=== PATIENT | male | born 1960 | race Caucasian/White ===

== ENCOUNTER 2016-12-21 08:27 | Emergency (ER) | payer MEDICAID ==
--- NOTE | 2016-12-21 09:43 | EDM.PDOC ---
ED HPI GENERAL MEDICAL PROBLEM - General Chief Complaint: Back Pain or Injury Stated Complaint: RIGHT LOWER FLANK/ABDOMINAL PAIN Time Seen by Provider: 12/21/16 09:39 Source of Information: Reports: Patient History Limitations: Reports: No Limitations - History of Present Illness INITIAL COMMENTS - FREE TEXT/NARRATIVE: pt arrived with acute onset of pain in the rt low cva area. He was having such severe pain that he felt like he was going to pass out. Onset: Today Duration: Hour(s):, Getting Worse Location: Reports: Back, Other ( rt cva area. ) Worsens with: Reports: Movement Associated Symptoms: Reports: No Other Symptoms, Other ( when he turns to the left side the pain gets alot worse. ) Right Flank Pain Score (Numeric/FACES): 9 - Related Data Allergies Allergy/AdvReac Type Severity Reaction Status Date / Time No Known Allergies Allergy Verified 12/21/16 09:20 Home Meds: Home Meds Aspirin 1 tab PO DAILY 12/21/16 [History] EPINEPHrine [Epinephrine] 1 dose INJECT ASDIRECTED 12/21/16 [History] Past Medical History HEENT History: Reports: Impaired Vision Cardiovascular History: Reports: Afib - Past Surgical History HEENT Surgical History: Reports: Tonsillectomy Musculoskeletal Surgical History: Reports: Arthroscopic Knee Social & Family History - Tobacco Use Smoking Status *Q: Never Smoker - Alcohol Use Days Per Week of Alcohol Use: 4 Number of Drinks Per Day: 2 Total Drinks Per Week: 8 - Recreational Drug Use Recreational Drug Use: No ED ROS GENERAL - Review of Systems Review Of Systems: See Below Constitutional: Reports: No Symptoms HEENT: Reports: No Symptoms Respiratory: Reports: No Symptoms Cardiovascular: Reports: No Symptoms Endocrine: Reports: No Symptoms GI/Abdominal: Reports: Other ( pain radiates to the rt groin. ) : Reports: No Symptoms Musculoskeletal: Reports: Other ( acute pain in the rt lower cva area. ) ED EXAM,LOWER BACK PAIN/INJURY - Physical Exam Exam: See Below Text/Narrative:: pt arrived with acute rt cva pain. Exam Limited By: No Limitations General Appearance: Alert, Anxious, Moderate Distress Ears: Normal TMs Nose: Normal Inspection Throat/Mouth: Normal Inspection Head: Atraumatic Neck: Normal Inspection Respiratory/Chest: No Respiratory Distress Cardiovascular: Regular Rate, Rhythm GI/Abdominal: Other (pt does not have abdomanal tenderness. ) (Male) Exam: Deferred Rectal (Males) Exam: Deferred Back Exam: CVA Tenderness (R) Extremities: Normal Inspection Neurological: Alert Psychiatric: Anxious Course - Vital Signs Last Recorded V/S: Last Vital Signs Temp 36.3 C 12/21/16 09:18 Pulse 45 L 12/21/16 11:27 Resp 18 12/21/16 11:27 BP 128/83 12/21/16 11:27 Pulse Ox 98 12/21/16 11:27 - Orders/Labs/Meds Labs: Laboratory Tests 12/21/16 12/21/16 12/21/16 Range/Units 09:21 09:35 09:35 WBC 4.6 (4.5-11.0) K/uL RBC 5.07 (4.30-5.90) M/uL Hgb 16.1 H (12.0-15.0) g/dL Hct 46.5 (40.0-54.0) % MCV 92 (80-98) fL MCH 32 H (27-31) pg MCHC 35 (32-36) % Plt Count 156 (150-400) K/uL Neut % (Auto) 74 H (36-66) % Lymph % (Auto) 17 L (24-44) % [place] % (Auto) 7 H (2-6) % Eos % (Auto) 2 (2-4) % Baso % (Auto) 0 (0-1) % Sodium 140 (140-148) mmol/L Potassium 4.3 (3.6-5.2) mmol/L Chloride 106 (100-108) mmol/L Carbon Dioxide 27 (21-32) mmol/L Anion Gap 7.2 (5.0-14.0) mmol/L BUN 20 H (7-18) mg/dL Creatinine 1.2 (0.8-1.3) mg/dL Est Cr Clr Drug Dosing 78.97 mL/min Estimated GFR (MDRD) > 60 (>60) Glucose 107 H (74-106) mg/dL Calcium 8.8 (8.5-10.1) mg/dL Total Bilirubin 1.5 H (0.2-1.0) mg/dL AST 22 (15-37) U/L ALT 34 (12-78) U/L Alkaline Phosphatase 63 (46-116) U/L Total Protein 7.6 (6.4-8.2) g/dL Albumin 3.9 (3.4-5.0) g/dL Globulin 3.7 H (2.3-3.5) g/dL Albumin/Globulin Ratio 1.1 L (1.2-2.2) Urine Color Yellow Urine Appearance Slightly cloudy Urine pH 6.0 (4.5-8.0) Ur Specific [place] 1.015 (1.008-1.030) Urine Protein Negative (NEGATIVE) mg/dL Urine Glucose (UA) Normal (NEGATIVE) mg/dL Urine Ketones Negative (NEGATIVE) mg/dL Urine Occult Blood Negative (NEGATIVE) Urine Nitrite Negative (NEGAITVE) Urine Bilirubin Negative (NEGATIVE) Urine Urobilinogen Normal (NORMAL) mg/dL Ur Leukocyte Esterase Negative (NEGATIVE) Urine RBC Not seen (0-5) Urine WBC Not seen (0-5) Ur Epithelial Cells Rare Amorphous Sediment Not seen Urine Bacteria Not seen Urine Mucus Many Meds: Medications Discontinued Medications Generic Name Dose Route Start Last Admin Trade Name Dash PRN Reason Stop Dose Admin Cyclobenzaprine HCl 10 mg 12/21/16 09:58 12/21/16 10:13 Flexeril PO 12/21/16 09:59 10 mg ONETIME ONE Administration Hydromorphone HCl 0.5 mg 12/21/16 11:46 12/21/16 11:52 Dilaudid IVPUSH 12/21/16 11:47 0.5 mg ONETIME ONE Administration Ketorolac Tromethamine 30 mg 12/21/16 09:57 12/21/16 10:13 Toradol IVPUSH 12/21/16 09:58 30 mg ONETIME ONE Administration Lorazepam 0.5 mg 12/21/16 11:50 12/21/16 11:56 Ativan IVPUSH 12/21/16 11:51 Not Given ONETIME ONE - Re-Assessments/Exams Free Text/Narrative Re-Assessment/Exam: 12/21/16 12:12 lumbar spine series did not show acute findings, cat scan of the abdoman was neg. His lab work was normal. Departure - Departure Time of Disposition: 11:59 Disposition: Home, Self-Care 01 Condition: Fair Clinical Impression: Spasm of lumbar paraspinous muscle - Discharge Information Referrals: PCP,None [Primary Care Provider] - Forms: ED Department Discharge Care Plan Goals: avoid constipation, use prunes daily , get gummy fibers and use 1 or 2 dailycool pack to the back area, rest. avoid lifting and pulling, flexeril 10 mg 1/2 tab qam and qnoon, 1 tab hs. percocet 5/325 q6h prn for pain, follow up appt with Izaiah Dunham.
[2016-12-21] MEDS ORDERED: Ketorolac 30 MG/ML SDV IVPUSH ONE (09:57)
[2016-12-21] MEDS ORDERED: Cyclobenzaprine 10 MG Tab PO ONE (09:58)
[2016-12-21 11:28] VITALS: BP 128/83
--- NOTE | 2016-12-21 11:32 | CT ---
CT abdomen and pelvis. Total DLP 1029. Indication: Right-sided pain. Findings: Lung bases are clear liver within normal limits. Gallbladder within normal limits. Adrenal glands are within normal limits. Pancreas within normal limits. Spleen within normal limits. Bilatera l perinephric fat stranding. No hydronephrosis or obstructing stone. Prostatomegaly. Terminal ileum w ithin normal limits. The appendix is visualized. No acute appendicitis. No dilated loops of small bow el. Bladder is unremarkable. Fat filled inguinal canals can indicate hernias. Minimal atherosclerotic change within the aorta. It is nonaneurysmal. Impression: 1. No acute abdominal or pelvic process by CT
[2016-12-21] MEDS ORDERED: HYDROmorphone 0.5 MG/0.5 ML Syringe IVPUSH ONE (11:46)
[2016-12-21] MEDS ORDERED: LORazepam 2 MG/ML MDV IVPUSH ONE (11:50)
--- NOTE | 2016-12-21 11:53 | CR ---
5 lumbar type vertebral bodies vertebral body heights are well-maintained. Disc height loss L5-S1. Fa cet arthropathy greatest L5-S1.
== END 2016-12-21 12:30 | disposition home or self-care (01) ==
LOC: JP.ED 08:27
DX: M62.830 Muscle spasm of back (principal); H54.7 Unspecified visual loss; I48.91 Unspecified atrial fibrillation; Z79.82 Long term (current) use of aspirin; Z98.890 Other specified postprocedural states
CPT/HCPCS: 36415; 72110; 74176; 80053; 81001; 85025; 96374; 96375; 99285; A9270; J1170; J1885

== ENCOUNTER 2017-08-31 07:36 | Day surgery (SDC) | payer MEDICAID ==
[2017-08-31] MEDS ORDERED: Propofol 200 MG/20 ML SDV ONE (07:53)
[2017-08-31] MEDS ORDERED: fentaNYL 100 MCG/2 ML SDV ONE (07:53)
[2017-08-31] MEDS ORDERED: Midazolam 1 MG/ML 2 ML SDV ONE (07:53)
[2017-08-31] MEDS ORDERED: Sodium Chloride 0.9% 1,000 ML IV SCH (09:15)
--- NOTE | 2017-08-31 10:46 | OR ---
DATE OF PROCEDURE: 08/31/2017 PROCEDURE: Colonoscopy. FINDINGS: Normal colonoscopy. RISKS: Risks, benefits, alternatives, and limitations including, but not limited to infection, bleeding, and perforation were explained to the patient and he wished to proceed. PROCEDURE IN DETAIL: The patient was placed in left lateral decubitus position. Digital rectal exam was performed without abnormality. The scope was introduced and advanced atraumatically to the ileocecal valve. The scope was brought back through the ascending, transverse, descending colon, and retroflexed. No evidence of old or new blood. No masses. No polyps. No diverticula. The patient tolerated the procedure well. Adam Kenny MD /[id number]
[2017-08-31 11:18] VITALS: BP 119/74
== END 2017-08-31 11:20 | disposition home or self-care (01) ==
LOC: JP.SDS 07:36
PROVIDERS: ATTEND Surgery
DX: Z12.11 Encounter for screening for malignant neoplasm of colon (principal)
CPT/HCPCS: 45378; J2250; J2704; J3010; J7030

== ENCOUNTER 2019-08-21 15:29 | Emergency (ER) | payer MEDICAID ==
[2019-08-21 16:11] VITALS: BP 117/82; PULSE 114
[2019-08-21] MEDS ORDERED: Sodium Chloride 0.9% 1,000 ML IV SCH (16:15)
--- NOTE | 2019-08-21 16:43 | EDM.PDOC ---
ED HPI GENERAL MEDICAL PROBLEM - General Chief Complaint: Cardiovascular Problem Stated Complaint: A FIB, DIZZY, SHORT OF BREATH Time Seen by Provider: 08/21/19 15:45 Source of Information: Reports: Patient History Limitations: Reports: No Limitations - History of Present Illness INITIAL COMMENTS - FREE TEXT/NARRATIVE: pt arrived with a history of feeling like his heart is irregular. He has had atrial fib three times in the past and he has been cardioverted. He has not had chest pain. He did not do anything different today. He has not been on any new meds. Onset: Other (pt believes it started in the nite. ) Duration: Hour(s): Location: Reports: Chest Associated Symptoms: Reports: Other (pt has increased fatique and mild dizziness. ) - Related Data Allergies Allergy/AdvReac Type Severity Reaction Status Date / Time bee venom protein (honey bee) Allergy Swelling Verified 08/21/19 15:40 Home Meds: Home Meds Aspirin 325 mg PO DAILY 12/21/16 [History] EPINEPHrine [Epinephrine] 1 dose INJECT ASDIRECTED 12/21/16 [History] Ascorbate Calcium/Bioflavonoid [Aspen-C 500 MG] 1 each PO DAILY 08/21/17 [ History] [place]-3/DHA/Epa/Fish Oil [Fish Oil 1,000 mg Softgel] 2,000 mg PO DAILY 08/21/17 [History] Past Medical History HEENT History: Reports: Impaired Vision Cardiovascular History: Reports: Afib Gastrointestinal History: Reports: Colon Polyp Musculoskeletal History: Reports: Arthritis - Infectious Disease History Infectious Disease History: Reports: Chicken Pox - Past Surgical History HEENT Surgical History: Reports: Tonsillectomy Cardiovascular Surgical History: Reports: Other (See Below) Other Cardiovascular Surgeries/Procedures: cardioversion GI Surgical History: Reports: Colonoscopy Musculoskeletal Surgical History: Reports: Arthroscopic Knee Social & Family History - Tobacco Use Smoking Status *Q: Never Smoker Second Hand Smoke Exposure: No - Caffeine Use Caffeine Use: Reports: Soda - Alcohol Use Days Per Week of Alcohol Use: 7 Number of Drinks Per Day: 2 Total Drinks Per Week: 14 - Recreational Drug Use Recreational Drug Use: No ED ROS GENERAL - Review of Systems Review Of Systems: See Below Constitutional: Reports: Fatigue HEENT: Reports: No Symptoms Respiratory: Reports: Shortness of Breath, Other (pt was working in the garden and he did get more winded today. ) Cardiovascular: Reports: No Symptoms Endocrine: Reports: No Symptoms GI/Abdominal: Reports: No Symptoms : Reports: No Symptoms Musculoskeletal: Reports: No Symptoms Skin: Reports: No Symptoms Neurological: Reports: No Symptoms ED EXAM, GENERAL - Physical Exam Exam: See Below Free Text/Narrative:: pt arrived feeling like his heart was out of rhythm. He has had atrial fib in the past x2. He did not have chest pain. He was sob when he was working today. He is quite sure he got up with the atrial fib today. Exam Limited By: No Limitations General Appearance: Alert, No Apparent Distress, Anxious, Other (pupils equal and reactive. ) Ears: Normal TMs Nose: Normal Inspection Throat/Mouth: Normal Inspection Head: Atraumatic Neck: Normal Inspection Respiratory/Chest: No Respiratory Distress, Other ( chest was clear) Cardiovascular: Irregularly Irregular, Other ( rate at the onset of the visit was 125. ) GI/Abdominal: Soft, Non-Tender (Male) Exam: Deferred Rectal (Males) Exam: Deferred Back Exam: Normal Inspection Extremities: Normal Inspection Neurological: Alert, Oriented, Normal Cognition Psychiatric: Normal Affect Course - Vital Signs Last Recorded V/S: Last Vital Signs Temp 35.5 C L 08/21/19 15:43 Pulse 114 H 08/21/19 16:07 Resp 13 08/21/19 16:07 BP 117/82 08/21/19 16:07 Pulse Ox 98 08/21/19 16:07 - Orders/Labs/Meds Orders: Active Orders 24 hr Category Date Time Status EKG Documentation Completion [RC] ASDIRECTED Care 08/21/19 15:35 Active EKG Documentation Completion [RC] ASDIRECTED Care 08/21/19 17:30 Active Sodium Chloride 0.9% [Normal Saline] 1,000 ml Med 08/21/19 16:15 Active IV ASDIRECTED EKG 12 Lead [EK] Routine Ther 08/21/19 15:35 Ordered EKG 12 Lead [EK] Routine Ther 08/21/19 17:29 Ordered Medication Orders Sodium Chloride (Normal Saline) 1,000 mls @ 250 mls/hr IV ASDIRECTED MARIANNA Last Admin: 08/21/19 16:18 Dose: 250 mls/hr Labs: Laboratory Tests 08/21/19 08/21/19 08/21/19 Range/Units 15:40 15:40 15:55 WBC 7.2 (4.5-11.0) K/uL RBC 5.38 (4.30-5.90) M/uL Hgb 16.8 H (12.0-15.0) g/dL Hct 49.3 (40.0-54.0) % MCV 92 (80-98) fL MCH 31 (27-31) pg MCHC 34 (32-36) % Plt Count 201 (150-400) K/uL Neut % (Auto) 67 H (36-66) % Lymph % (Auto) 19 L (24-44) % [place] % (Auto) 8 H (2-6) % Eos % (Auto) 6 H (2-4) % Baso % (Auto) 0 (0-1) % Sodium 137 L (140-148) mmol/L Potassium 4.2 (3.6-5.2) mmol/L Chloride 104 (100-108) mmol/L Carbon Dioxide 24 (21-32) mmol/L Anion Gap 13.2 (5.0-14.0) mmol/L BUN 22 H (7-18) mg/dL Creatinine 1.5 H (0.8-1.3) mg/dL Est Cr Clr Drug Dosing 59.93 mL/min Estimated GFR (MDRD) 48 L (>60) Glucose 124 H (74-106) mg/dL Calcium 8.9 (8.5-10.1) mg/dL Total Bilirubin 1.2 H (0.2-1.0) mg/dL AST 19 (15-37) U/L ALT 35 (12-78) U/L Alkaline Phosphatase 76 (46-116) U/L Troponin I < 0.017 (0.000-0.056) ng/mL Total Protein 7.3 (6.4-8.2) g/dL Albumin 4.0 (3.4-5.0) g/dL Globulin 3.3 (2.3-3.5) g/dL Albumin/Globulin Ratio 1.2 (1.2-2.2) TSH, Ultra Sensitive 2.156 (0.358-3.740) uIU/mL Urine Color Yellow (YELLOW) Urine Appearance Clear (CLEAR) Urine pH 5.5 (5.0-8.0) Ur Specific [place] >= 1.030 (1.008-1.030) Urine Protein Negative (NEGATIVE) mg/dL Urine Glucose (UA) Negative (NEGATIVE) mg/dL Urine Ketones Trace H (NEGATIVE) mg/dL Urine Occult Blood Negative (NEGATIVE) Urine Nitrite Negative (NEGATIVE) Urine Bilirubin Negative (NEGATIVE) Urine Urobilinogen 0.2 (0.2-1.0) EU/dL Ur Leukocyte Esterase Negative (NEGATIVE) Urine RBC 0-5 (0-5) Urine WBC 0-5 (0-5) Ur Epithelial Cells Few Amorphous Sediment Not seen Urine Bacteria Few Urine Mucus Few Meds: Medications Generic Name Dose Route Start Last Admin Trade Name Freq PRN Reason Stop Dose Admin Sodium Chloride 1,000 mls @ 250 mls/hr 08/21/19 16:15 08/21/19 16:18 Normal Saline IV 250 mls/hr ASDIRECTED MARIANNA Administration Discontinued Medications Generic Name Dose Route Start Last Admin Trade Name Freq PRN Reason Stop Dose Admin Propofol Confirm 08/21/19 17:02 Diprivan 20 Ml Administered 08/21/19 17:03 Dose 200 mg .ROUTE .STK-MED ONE - Re-Assessments/Exams Free Text/Narrative Re-Assessment/Exam: 08/21/19 16:44 pt was found to have normal labs except a creatmine of 1.5. He showed atrial fib on the ekg. Dr Hicks was consulted and a cardioversion was done. He has a normal sinus rhythm with a heart rate of 49. 08/21/19 17:37 Departure - Departure Time of Disposition: 17:43 Disposition: Home, Self-Care 01 Condition: Fair Clinical Impression: Atrial fibrillation, Encounter for cardioversion procedure, Elevated serum creatinine Referrals: PCP,None [Primary Care Provider] - Forms: ED Department Discharge Care Plan Goals: push fluids, appt with cardiology in [place] in the next 2 weeks if possible, rtc if problems. Sepsis Event Note - Evaluation Sepsis Screening Result: No Definite Risk - Focused Exam Vital Signs: Vital Signs Temp Pulse Resp BP Pulse Ox 08/21/19 16:07 114 H 13 117/82 98 08/21/19 15:52 16 L 13 126/86 98 08/21/19 15:43 35.5 C L 108 H 17 117/84 98 08/21/19 15:42 35.5 C L 108 H 17 117/84 98 Date Exam was Performed: 08/21/19 Time Exam was Performed: 17:43 - My Orders Last 24 Hours: My Active Orders 08/21/19 15:35 EKG Documentation Completion [RC] ASDIRECTED EKG 12 Lead [EK] Routine 08/21/19 16:15 Sodium Chloride 0.9% [Normal Saline] 1,000 ml IV ASDIRECTED 08/21/19 17:29 EKG 12 Lead [EK] Routine 08/21/19 17:30 EKG Documentation Completion [RC] ASDIRECTED - Assessment/Plan Last 24 Hours: My Active Orders 08/21/19 15:35 EKG Documentation Completion [RC] ASDIRECTED EKG 12 Lead [EK] Routine 08/21/19 16:15 Sodium Chloride 0.9% [Normal Saline] 1,000 ml IV ASDIRECTED 08/21/19 17:29 EKG 12 Lead [EK] Routine 08/21/19 17:30 EKG Documentation Completion [RC] ASDIRECTED
--- NOTE | 2019-08-21 16:48 | PCM.CONS ---
H&P History of Present Illness - General Date of Service: 08/21/19 Admit Problem/Dx: Mr. Gilman is a 58-year-old gentleman who I been asked to see in the emergency department by Dr. Castro for recommendations concerning management of atrial fibrillation with rapid ventricular response. He has a known history of previous episodic atrial fibrillation. First episode occurred approximately 8 years ago, he was cardioverted to sinus rhythm at that time. Second episode occurred approximately 7 months ago and again he underwent electrical cardioversion in the emergency department. Following that episode he was seen by cardiology and had an echocardiogram, they recommended no further intervention other than 1 whole aspirin per day. Last night after getting out of the chair he noted that he was somewhat lightheaded but did not note that his heart rate was rapid or irregular. This morning he felt more weak and tired , his noted that his heart rhythm was irregular and rapid. He was active through the day and perhaps felt slightly more short of breath than usual. He decided to come into the emergency department for further evaluation and was found to be in atrial fibrillation with rapid ventricular response, rates in the range of 100-120. He denies any symptoms of chest pain or pressure, shortness of breath other than mild exertional dyspnea. He has no significant lightheadedness and is fairly sure that he is gone into the atrial fibrillation within the last 24 hours. He has no known history of other cardiac disease or interventions. Source of Information: Patient, Provider, RN Notes Reviewed History Limitations: Reports: No Limitations - Related Data Allergies/Adverse Reactions: Allergies Allergy/AdvReac Type Severity Reaction Status Date / Time bee venom protein (honey bee) Allergy Swelling Verified 08/21/19 15:40 Home Medications: Home Meds Aspirin 325 mg PO DAILY 12/21/16 [History] EPINEPHrine [Epinephrine] 1 dose INJECT ASDIRECTED 12/21/16 [History] Ascorbate Calcium/Bioflavonoid [Aspen-C 500 MG] 1 each PO DAILY 08/21/17 [ History] [place]-3/DHA/Epa/Fish Oil [Fish Oil 1,000 mg Softgel] 2,000 mg PO DAILY 08/21/17 [History] Past Medical History HEENT History: Reports: Impaired Vision Cardiovascular History: Reports: Afib Gastrointestinal History: Reports: Colon Polyp Musculoskeletal History: Reports: Arthritis - Infectious Disease History Infectious Disease History: Reports: Chicken Pox - Past Surgical History HEENT Surgical History: Reports: Tonsillectomy Cardiovascular Surgical History: Reports: Other (See Below) Other Cardiovascular Surgeries/Procedures: cardioversion GI Surgical History: Reports: Colonoscopy Musculoskeletal Surgical History: Reports: Arthroscopic Knee Social & Family History - Tobacco Use Smoking Status *Q: Never Smoker Second Hand Smoke Exposure: No - Caffeine Use Caffeine Use: Reports: Soda - Alcohol Use Days Per Week of Alcohol Use: 7 Number of Drinks Per Day: 2 Total Drinks Per Week: 14 - Recreational Drug Use Recreational Drug Use: No H&P Review of Systems - Review of Systems: Review Of Systems: See Below General: Reports: Weakness, Fatigue. Denies: Fever, Chills Pulmonary: Reports: No Symptoms Cardiovascular: Reports: Palpitations, Dyspnea on Exertion. Denies: Chest Pain , Orthopnea, PND, Edema, Lightheadedness Gastrointestinal: Reports: No Symptoms Musculoskeletal: Reports: No Symptoms Exam - Exam Exam: See Below - Vital Signs Vital Signs: Last Vital Signs Temp 95.9 F L 08/21/19 15:43 Pulse 114 H 08/21/19 16:07 Resp 13 08/21/19 16:07 BP 117/82 08/21/19 16:07 Pulse Ox 98 08/21/19 16:07 Weight: 232 lb - Exam General: Alert, Oriented, Cooperative, Mild Distress Neck: Supple, Trachea Midline, +2 Carotid Pulse wo Bruit Lungs: Clear to Auscultation, Normal Respiratory Effort Cardiovascular: Normal S1, Normal S2, Irregular Rhythm, Tachycardia. No: Systolic Murmur, Diastolic Murmur GI/Abdominal Exam: Soft, Non-Tender, No Organomegaly, No Distention Extremities: Non-Tender, No Pedal Edema - Patient Data Lab Results Last 24 hrs: Laboratory Results - last 24 hr 08/21/19 08/21/19 08/21/19 Range/Units 15:40 15:40 15:55 WBC 7.2 (4.5-11.0) K/uL RBC 5.38 (4.30-5.90) M/uL Hgb 16.8 H (12.0-15.0) g/dL Hct 49.3 (40.0-54.0) % MCV 92 (80-98) fL MCH 31 (27-31) pg MCHC 34 (32-36) % Plt Count 201 (150-400) K/uL Neut % (Auto) 67 H (36-66) % Lymph % (Auto) 19 L (24-44) % [place] % (Auto) 8 H (2-6) % Eos % (Auto) 6 H (2-4) % Baso % (Auto) 0 (0-1) % Sodium 137 L (140-148) mmol/L Potassium 4.2 (3.6-5.2) mmol/L Chloride 104 (100-108) mmol/L Carbon Dioxide 24 (21-32) mmol/L Anion Gap 13.2 (5.0-14.0) mmol/L BUN 22 H (7-18) mg/dL Creatinine 1.5 H (0.8-1.3) mg/dL Est Cr Clr Drug Dosing 59.93 mL/min Estimated GFR (MDRD) 48 L (>60) Glucose 124 H (74-106) mg/dL Calcium 8.9 (8.5-10.1) mg/dL Total Bilirubin 1.2 H (0.2-1.0) mg/dL AST 19 (15-37) U/L ALT 35 (12-78) U/L Alkaline Phosphatase 76 (46-116) U/L Troponin I < 0.017 (0.000-0.056) ng/mL Total Protein 7.3 (6.4-8.2) g/dL Albumin 4.0 (3.4-5.0) g/dL Globulin 3.3 (2.3-3.5) g/dL Albumin/Globulin Ratio 1.2 (1.2-2.2) TSH, Ultra Sensitive 2.156 (0.358-3.740) uIU/mL Urine Color Yellow (YELLOW) Urine Appearance Clear (CLEAR) Urine pH 5.5 (5.0-8.0) Ur Specific [place] >= 1.030 (1.008-1.030) Urine Protein Negative (NEGATIVE) mg/dL Urine Glucose (UA) Negative (NEGATIVE) mg/dL Urine Ketones Trace H (NEGATIVE) mg/dL Urine Occult Blood Negative (NEGATIVE) Urine Nitrite Negative (NEGATIVE) Urine Bilirubin Negative (NEGATIVE) Urine Urobilinogen 0.2 (0.2-1.0) EU/dL Ur Leukocyte Esterase Negative (NEGATIVE) Urine RBC 0-5 (0-5) Urine WBC 0-5 (0-5) Ur Epithelial Cells Few Amorphous Sediment Not seen Urine Bacteria Few Urine Mucus Few Result Diagrams: 08/21/19 15:40 08/21/19 15:40 Sepsis Event Note - Evaluation Sepsis Screening Result: No Definite Risk - Focused Exam Vital Signs: Vital Signs Temp Pulse Resp BP Pulse Ox 08/21/19 16:07 114 H 13 117/82 98 08/21/19 15:52 16 L 13 126/86 98 08/21/19 15:43 95.9 F L 108 H 17 117/84 98 08/21/19 15:42 95.9 F L 108 H 17 117/84 98 Date Exam was Performed: 08/21/19 Time Exam was Performed: 16:42 *Q Meaningful Use (ADM) - VTE *Q VTE Anticoagulation Contraindications: Med/TX Not Indicated/Need Consult PN Assessment/Plan Procedures: Procedures COMPLETE CBC W/AUTO DIFF WBC (12/21/16) COMPREHEN METABOLIC PANEL (12/21/16) CT ABD & PELVIS W/O CONTRAST (12/21/16) CT LOWER EXTREMITY W/O DYE (06/25/19) DIAGNOSTIC COLONOSCOPY (08/31/17) EMERGENCY DEPT VISIT (12/21/16) MRI JNT OF LWR EXTRE W/O DYE (06/23/19) MRI LUMBAR SPINE W/O DYE (06/23/19) POLYSOM 6/> YRS 4/> LUIS (05/05/19) PT EVAL LOW COMPLEX 20 MIN (11/02/16) ROUTINE VENIPUNCTURE (12/21/16) THER/PROPH/DIAG INJ IV PUSH (12/21/16) THERAPEUTIC ACTIVITIES (11/02/16) THERAPEUTIC EXERCISES (11/02/16) TX/PRO/DX INJ NEW DRUG ADDON (12/21/16) URINALYSIS AUTO W/SCOPE (12/21/16) X-RAY EXAM L-2 SPINE 4/>VWS (12/21/16) Problem List Initiated/Reviewed/Updated: Yes Plan: ASSESSMENT AND RECOMMENDATIONS ATRIAL FIBRILLATION WITH RAPID VENTRICULAR RESPONSE-I discussed options for management with him including observation versus electrical cardioversion, with the risks and goals of each. He prefers to proceed with electrical cardioversion. -Electrical cardioversion -IV sedation per anesthesia -Outpatient follow-up with primary care and cardiology [place]ing [place] [facility] [place] Consult Requested: 08/21/19 Reason for Consult: Atrial fibrillation with rapid ventricular response Patient History Reviewed: Yes Admission H&P Reviewed: No (NA) Notified Requestor: Yes
--- NOTE | 2019-08-21 16:51 | PCM.OPNOTE ---
- General Post-Op/Procedure Note Date of Surgery/Procedure: 08/21/19 Operative Procedure(s): Electrical cardioversion Pre Op Diagnosis: Atrial fibrillation with rapid ventricular response Post-Op Diagnosis: Same Anesthesia Technique: Moderate Sedation Primary Surgeon: Tim Hicks Anesthesia Provider: Dariusz Alonzo Complications: None Condition: Good Free Text/Narrative:: Mr. Gilman is a 58-year-old gentleman with recurrent atrial fibrillation and rapid ventricular response. 2 previous episodes, both times converted to sinus with rhythm with electrical cardioversion. We discussed options for management including electrical cardioversion versus observation and rate control, with risks and benefits of each. He would like to proceed with electrical cardioversion at this time. IV sedation provided by Mr. Alonzo from the anesthesia service, after adequate sedation was achieved, he was electrically cardioverted to sinus rhythm using 200 J of energy delivered in a synchronized fashion. Follow-up EKG did document normal sinus rhythm. He will be discharged home after he is recovered from his IV sedation, he is instructed not to drive or use power tools for the next 24 hours. Follow-up appointment should be scheduled with his primary care provider within 1 week, consider outpatient follow-up with cardiology as well.
[2019-08-21] MEDS ORDERED: Propofol 200 MG/20 ML SDV ONE (17:02)
== END 2019-08-21 18:02 | disposition home or self-care (01) ==
LOC: JP.ED 15:29
DX: I48.91 Unspecified atrial fibrillation (principal); R74.8 Abnormal levels of other serum enzymes; M19.90 Unspecified osteoarthritis, unspecified site; Z79.82 Long term (current) use of aspirin; Z91.030 Bee allergy status
CPT/HCPCS: 36415; 80053; 81001; 84443; 84484; 85025; 92960; 93005; 96360; 96361; 99285; J2704; J7030

== ENCOUNTER 2019-12-10 14:57 | Inpatient (IN) | payer MEDICAID ==
[2019-12-10] MEDS ORDERED: Sodium Chloride 0.9% 10 ML Syringe FLUSH PRN ×2 (15:16→17:39)
[2019-12-10] MEDS ORDERED: Diltiazem 25 MG/5 ML SDV IVPUSH ONE (15:17)
--- NOTE | 2019-12-10 15:22 | EDM.PDOC ---
ED HPI GENERAL MEDICAL PROBLEM - General Chief Complaint: Cardiovascular Problem Stated Complaint: IRREGULAR HEARTBEAT/AFIB Time Seen by Provider: 12/10/19 15:16 Source of Information: Reports: Patient, Family, RN Notes Reviewed History Limitations: Reports: No Limitations - History of Present Illness INITIAL COMMENTS - FREE TEXT/NARRATIVE: 59-year-old gentleman presents emergency department today with complaint of palpitations he has known history of paroxysmal atrial fibrillation he has had cardioversion x3 first in 2011 and then twice within the last year he does follow with electrophysiology in [place]. He states this particular event he was doing fine yesterday and then it started today at 10:00 last ate at 11:00 today, denies any shortness of breath or chest pain no nausea vomiting - Related Data Allergies Allergy/AdvReac Type Severity Reaction Status Date / Time bee venom protein (honey bee) Allergy Swelling Verified 08/21/19 15:40 Home Meds: Home Meds Aspirin 325 mg PO DAILY 12/21/16 [History] EPINEPHrine [Epinephrine] 1 dose INJECT ASDIRECTED 12/21/16 [History] Ascorbate Calcium/Bioflavonoid [Aspen-C 500 MG] 1 each PO DAILY 08/21/17 [History] [place]-3/DHA/Epa/Fish Oil [Fish Oil 1,000 mg Softgel] 2,000 mg PO DAILY 08/21/17 [History] Past Medical History HEENT History: Reports: Impaired Vision Cardiovascular History: Reports: Afib (Paroxysmal) Gastrointestinal History: Reports: Colon Polyp Musculoskeletal History: Reports: Arthritis - Infectious Disease History Infectious Disease History: Reports: Chicken Pox - Past Surgical History HEENT Surgical History: Reports: Tonsillectomy Cardiovascular Surgical History: Reports: Other (See Below) Other Cardiovascular Surgeries/Procedures: cardioversion GI Surgical History: Reports: Colonoscopy Musculoskeletal Surgical History: Reports: Arthroscopic Knee Social & Family History - Tobacco Use Smoking Status *Q: Never Smoker - Caffeine Use Caffeine Use: Reports: Tea - Recreational Drug Use Recreational Drug Use: No ED ROS GENERAL - Review of Systems Review Of Systems: See Below Constitutional: Reports: No Symptoms HEENT: Reports: No Symptoms Respiratory: Reports: No Symptoms Cardiovascular: Reports: Palpitations GI/Abdominal: Reports: No Symptoms ED EXAM, GENERAL - Physical Exam Exam: See Below Exam Limited By: No Limitations General Appearance: Alert, WD/WN, No Apparent Distress Neck: Normal Inspection, Supple, Non-Tender, Full Range of Motion Respiratory/Chest: No Respiratory Distress, Lungs Clear, Normal Breath Sounds, No Accessory Muscle Use, Chest Non-Tender Cardiovascular: Irregularly Irregular GI/Abdominal: Soft, Non-Tender ED CARDIOLOGY PROCEDURES - Cardioversion Time of Cardioversion: 16:45 Indication: Atrial Fibrillation with RVR Patient Counseled: Yes Informed Consent Obtained: Yes Preparation: IV Access, Airway Management Equipment, Supplemental Oxygen, Monitor, Reversal Agents Available, Other Pre-Procedure Sedation: Propofol Cardioversion Energy: Other Mode: Biphasic Successful: No Number of Attempts: 2 Patient Condition Post Cardioversion: Unchanged Post Cardioversion EKG Reviewed: No Course - Vital Signs Last Recorded V/S: Last Vital Signs Temp 98.6 F 12/10/19 15:08 Pulse 74 12/10/19 15:32 Resp 17 12/10/19 15:32 BP 100/73 12/10/19 15:32 Pulse Ox 94 L 12/10/19 15:32 - Orders/Labs/Meds Orders: Active Orders 24 hr Category Date Time Status Cardiac Monitoring [RC] .As Directed Care 12/10/19 15:16 Active EKG Documentation Completion [RC] ASDIRECTED Care 12/10/19 15:16 Active Peripheral IV Care [RC] . DIRECTED Care 12/10/19 15:16 Active Diltiazem 100 MG in Normal Saline Adv @ 5 MG/HR(100ml) Med 12/10/19 16:45 Ordered Diltiazem [Cardizem] 100 mg Sodium Chloride 0.9% [Normal Saline] 100 ml IV TITRATE Sodium Chloride 0.9% [Normal Saline] 1,000 ml Med 12/10/19 15:30 Active IV ASDIRECTED Sodium Chloride 0.9% [Saline Flush] Med 12/10/19 15:16 Active 10 ml FLUSH ASDIRECTED PRN Peripheral IV Insertion Adult [OM.PC] Stat Oth 12/10/19 15:16 Ordered EKG 12 Lead [EK] Stat Ther 12/10/19 15:16 Ordered Medication Orders Sodium Chloride (Normal Saline) 1,000 mls @ 125 mls/hr IV ASDIRECTED MARIANNA Last Admin: 12/10/19 15:19 Dose: 125 mls/hr Documented by: [id number] Diltiazem HCl 100 mg/ Sodium (Chloride) 100 mls @ 5 mls/hr IV TITRATE MARIANNA; Protocol Sodium Chloride (Saline Flush) 10 ml FLUSH ASDIRECTED PRN PRN Reason: Keep Vein Open Last Admin: 12/10/19 15:21 Dose: 10 ml Documented by: PRISCILLA Labs: Laboratory Tests 12/10/19 12/10/19 Range/Units 15:10 15:10 WBC 11.4 H (4.5-11.0) K/uL RBC 5.44 (4.30-5.90) M/uL Hgb 16.8 H (12.0-15.0) g/dL Hct 50.1 (40.0-54.0) % MCV 92 (80-98) fL MCH 31 (27-31) pg MCHC 34 (32-36) % Plt Count 198 (150-400) K/uL Neut % (Auto) 80 H (36-66) % Lymph % (Auto) 11 L (24-44) % [place] % (Auto) 8 H (2-6) % Eos % (Auto) 1 L (2-4) % Baso % (Auto) 0 (0-1) % Sodium 140 (140-148) mmol/L Potassium 4.5 (3.6-5.2) mmol/L Chloride 105 (100-108) mmol/L Carbon Dioxide 25 (21-32) mmol/L Anion Gap 9.6 (5.0-14.0) mmol/L BUN 20 H (7-18) mg/dL Creatinine 1.6 H (0.8-1.3) mg/dL Est Cr Clr Drug Dosing 55.49 mL/min Estimated GFR (MDRD) 44 L (>60) Glucose 105 (74-106) mg/dL Calcium 9.3 (8.5-10.1) mg/dL Magnesium 1.9 (1.8-2.4) mg/dL Total Bilirubin 1.5 H (0.2-1.0) mg/dL AST 20 (15-37) U/L ALT 27 (12-78) U/L Alkaline Phosphatase 70 (46-116) U/L Troponin I < 0.017 (0.000-0.056) ng/mL Total Protein 7.6 (6.4-8.2) g/dL Albumin 4.1 (3.4-5.0) g/dL Globulin 3.5 (2.3-3.5) g/dL Albumin/Globulin Ratio 1.2 (1.2-2.2) Meds: Medications Generic Name Dose Route Start Last Admin Trade Name Freq PRN Reason Stop Dose Admin Sodium Chloride 1,000 mls @ 125 mls/hr 12/10/19 15:30 12/10/19 15:19 Normal Saline IV 125 mls/hr ASDIRECTED MARIANNA Administration Diltiazem HCl 100 mg/ Sodium 100 mls @ 5 mls/hr 12/10/19 16:45 Chloride IV TITRATE MARIANNA Protocol 5 MG/HR Sodium Chloride 10 ml 12/10/19 15:16 12/10/19 15:21 Saline Flush FLUSH 10 ml ASDIRECTED PRN Administration Keep Vein Open Discontinued Medications Generic Name Dose Route Start Last Admin Trade Name Freq PRN Reason Stop Dose Admin Diltiazem HCl 25 mg 12/10/19 15:17 12/10/19 15:20 Diltiazem IVPUSH 12/10/19 15:18 25 mg ONETIME ONE Administration Propofol Confirm 12/10/19 16:39 Diprivan 20 Ml Administered 12/10/19 16:40 Dose 200 mg .ROUTE .STK-MED ONE - Re-Assessments/Exams Free Text/Narrative Re-Assessment/Exam: 12/10/19 15:21 Call discussed case with Hayden from anesthesia at 1520 estimated 1 hour arrival time before cardioversion Departure - Departure Time of Disposition: 16:48 Disposition: Admitted As Inpatient 65 Condition: Fair Clinical Impression: Atrial fibrillation Qualifiers: Atrial fibrillation type: persistent (not longstanding) Qualified Code(s): I48.19 - Other persistent atrial fibrillation; I48.1 - Persistent atrial fibrillation Referrals: PCP,None [Primary Care Provider] - Forms: ED Department Discharge Sepsis Event Note (ED) - Evaluation Sepsis Screening Result: No Definite Risk - Focused Exam Vital Signs: Vital Signs Temp Pulse Resp BP Pulse Ox 12/10/19 15:32 74 17 100/73 94 L 12/10/19 15:08 98.6 F 117 H 16 117/82 98 12/10/19 15:07 98.6 F 117 H 16 117/82 98 - My Orders Last 24 Hours: My Active Orders 12/10/19 15:16 Cardiac Monitoring [RC] .As Directed EKG Documentation Completion [RC] ASDIRECTED Peripheral IV Care [RC] . DIRECTED Sodium Chloride 0.9% [Saline Flush] 10 ml FLUSH ASDIRECTED PRN Peripheral IV Insertion Adult [OM.PC] Stat EKG 12 Lead [EK] Stat 12/10/19 15:30 Sodium Chloride 0.9% [Normal Saline] 1,000 ml IV ASDIRECTED 12/10/19 16:45 Diltiazem 100 MG in Normal Saline Adv @ 5 MG/HR(100ml) Diltiazem [Cardizem] 100 mg Sodium Chloride 0.9% [Normal Saline] 100 ml IV TITRATE - Assessment/Plan Last 24 Hours: My Active Orders 12/10/19 15:16 Cardiac Monitoring [RC] .As Directed EKG Documentation Completion [RC] ASDIRECTED Peripheral IV Care [RC] . DIRECTED Sodium Chloride 0.9% [Saline Flush] 10 ml FLUSH ASDIRECTED PRN Peripheral IV Insertion Adult [OM.PC] Stat EKG 12 Lead [EK] Stat 12/10/19 15:30 Sodium Chloride 0.9% [Normal Saline] 1,000 ml IV ASDIRECTED 12/10/19 16:45 Diltiazem 100 MG in Normal Saline Adv @ 5 MG/HR(100ml) Diltiazem [Cardizem] 100 mg Sodium Chloride 0.9% [Normal Saline] 100 ml IV TITRATE Plan: Assessment Acuity = acute Site and laterality = atrial fibrillation with rapid ventricular response Etiology = unknown Manifestations = lightheadedness with near syncope Location of injury = Home Lab values = CBC unremarkable CMP reveals a creatinine elevated 1.6 consistent with chronic renal failure stage G3 B EKG demonstrates atrial fibrillation Plan Cardioversion was unsuccessful at 2 attempts next call discussed case with hospitalist on-call at 1630 he kindly agreed to come and evaluate the patient emergency department for admission thus far has been given a Cardizem bolus prior to cardioversion and now initiated on a Cardizem drip This note was dictated using [employer] voice recognition software please call with any questions on syntax or grammar.
[2019-12-10] MEDS ORDERED: Sodium Chloride 0.9% 1,000 ML IV SCH (15:30)
[2019-12-10] MEDS ORDERED: Propofol 200 MG/20 ML SDV ONE (16:39)
[2019-12-10] MEDS ORDERED: Diltiazem 100 MG in Sodium Chloride 0.9% 100 ML IV SCH ×2 (16:45→17:39)
--- NOTE | 2019-12-10 16:50 | PCM.HP.2 ---
H&P History of Present Illness - General Date of Service: 12/10/19 Admit Problem/Dx: Admission Diagnosis/Problem Admission Diagnosis/Problem Atrial fibrillation with rapid ventricular response Source of Information: Patient, Family, Provider, RN Notes Reviewed History Limitations: Reports: No Limitations - History of Present Illness Initial Comments - Free Text/Narative: Mr. Gilman is a 59-year-old gentleman who was admitted through the emergency department with weakness and lightheadedness secondary to atrial fibrillation with rapid ventricular response. He has a known history of paroxysmal atrial fibrillation with 3 previous episodes, 2 of which have occurred in the past year. He has been followed by Dr. Bhat, EP cardiology from [facility] in [facility]. He was feeling well until approximately 10 AM this morning when he noted onset of rapid heart rate associated with symptoms of lightheadedness when he would stand up or try any type of activity. He presented to the emergency department this afternoon, labs were unremarkable except for a creatinine of 1.6. Telemetry monitoring and EKG showed atrial fibrillation with rapid ventricular response. Electrical cardioversion was attempted in the emergency department and 2 attempts, the first at 200 J and the second at 300 J were both unsuccessful in converting him to sinus rhythm. He has received a bolus dose of IV diltiazem 25 mg and his rate has improved and now is below 100. Calculated [id number] score is 0. - Related Data Allergies/Adverse Reactions: Allergies Allergy/AdvReac Type Severity Reaction Status Date / Time bee venom protein (honey bee) Allergy Swelling Verified 08/21/19 15:40 Home Medications: Home Meds Aspirin 325 mg PO DAILY 12/21/16 [History] EPINEPHrine [Epinephrine] 1 dose INJECT ASDIRECTED 12/21/16 [History] Ascorbate Calcium/Bioflavonoid [Aspen-C 500 MG] 1 each PO DAILY 08/21/17 [History] [place]-3/DHA/Epa/Fish Oil [Fish Oil 1,000 mg Softgel] 2,000 mg PO DAILY 08/21/17 [History] Past Medical History HEENT History: Reports: Impaired Vision Cardiovascular History: Reports: Afib (Paroxysmal) Gastrointestinal History: Reports: Colon Polyp Musculoskeletal History: Reports: Arthritis - Infectious Disease History Infectious Disease History: Reports: Chicken Pox - Past Surgical History HEENT Surgical History: Reports: Tonsillectomy Cardiovascular Surgical History: Reports: Other (See Below) Other Cardiovascular Surgeries/Procedures: cardioversion GI Surgical History: Reports: Colonoscopy Musculoskeletal Surgical History: Reports: Arthroscopic Knee Social & Family History - Tobacco Use Smoking Status *Q: Never Smoker - Caffeine Use Caffeine Use: Reports: Tea - Recreational Drug Use Recreational Drug Use: No H&P Review of Systems - Review of Systems: Review Of Systems: See Below General: Reports: No Symptoms HEENT: Reports: No Symptoms Pulmonary: Reports: No Symptoms Cardiovascular: Reports: Palpitations, Lightheadedness. Denies: Chest Pain, Dyspnea on Exertion, Orthopnea, PND, Edema, Syncope Gastrointestinal: Reports: No Symptoms Genitourinary: Reports: No Symptoms Musculoskeletal: Reports: No Symptoms Skin: Reports: No Symptoms Psychiatric: Reports: No Symptoms Neurological: Reports: No Symptoms Hematologic/Lymphatic: Reports: No Symptoms Immunologic: Reports: No Symptoms Exam - Exam Exam: See Below - Vital Signs Vital Signs: Last Vital Signs Temp 98.6 F 12/10/19 15:08 Pulse 74 12/10/19 15:32 Resp 17 12/10/19 15:32 BP 100/73 12/10/19 15:32 Pulse Ox 94 L 12/10/19 15:32 Weight: 230 lb - Exam General: Alert, Oriented, Cooperative, Mild Distress HEENT: Conjunctiva Clear, Hearing Intact, Mucosa Moist & [place], Normal Nasal Septum, Posterior Pharynx Clear, Pupils Equal Neck: Supple, Trachea Midline, +2 Carotid Pulse wo Bruit Lungs: Clear to Auscultation, Normal Respiratory Effort, Decreased Breath Sounds Cardiovascular: Regular Rate, Normal S1, Normal S2, Irregular Rhythm. No: Systolic Murmur, Diastolic Murmur GI/Abdominal Exam: Soft, Non-Tender, No Organomegaly, No Distention Back Exam: Normal Inspection, Full Range of Motion Extremities: Non-Tender, No Pedal Edema Skin: Warm, Dry, Intact Neurological: Cranial Nerves Intact, Strength Equal Bilateral, Normal Speech, Normal Tone, Sensation Intact. No: Focal Deficit Neuro Extensive - Mental Status: Alert, Oriented x3, Normal Mood/Affect, Normal Cognition, Memory Intact - Patient Data Lab Results Last 24 hrs: Laboratory Results - last 24 hr 12/10/19 12/10/19 Range/Units 15:10 15:10 WBC 11.4 H (4.5-11.0) K/uL RBC 5.44 (4.30-5.90) M/uL Hgb 16.8 H (12.0-15.0) g/dL Hct 50.1 (40.0-54.0) % MCV 92 (80-98) fL MCH 31 (27-31) pg MCHC 34 (32-36) % Plt Count 198 (150-400) K/uL Neut % (Auto) 80 H (36-66) % Lymph % (Auto) 11 L (24-44) % [place] % (Auto) 8 H (2-6) % Eos % (Auto) 1 L (2-4) % Baso % (Auto) 0 (0-1) % Sodium 140 (140-148) mmol/L Potassium 4.5 (3.6-5.2) mmol/L Chloride 105 (100-108) mmol/L Carbon Dioxide 25 (21-32) mmol/L Anion Gap 9.6 (5.0-14.0) mmol/L BUN 20 H (7-18) mg/dL Creatinine 1.6 H (0.8-1.3) mg/dL Est Cr Clr Drug Dosing 55.49 mL/min Estimated GFR (MDRD) 44 L (>60) Glucose 105 (74-106) mg/dL Calcium 9.3 (8.5-10.1) mg/dL Magnesium 1.9 (1.8-2.4) mg/dL Total Bilirubin 1.5 H (0.2-1.0) mg/dL AST 20 (15-37) U/L ALT 27 (12-78) U/L Alkaline Phosphatase 70 (46-116) U/L Troponin I < 0.017 (0.000-0.056) ng/mL Total Protein 7.6 (6.4-8.2) g/dL Albumin 4.1 (3.4-5.0) g/dL Globulin 3.5 (2.3-3.5) g/dL Albumin/Globulin Ratio 1.2 (1.2-2.2) Result Diagrams: 12/10/19 15:10 12/10/19 15:10 Sepsis Event Note - Evaluation Sepsis Screening Result: No Definite Risk - Focused Exam Vital Signs: Vital Signs Temp Pulse Resp BP Pulse Ox 12/10/19 15:32 74 17 100/73 94 L 12/10/19 15:08 98.6 F 117 H 16 117/82 98 12/10/19 15:07 98.6 F 117 H 16 117/82 98 *Q Meaningful Use (ADM) - VTE Risk Assess *Q Each Risk Factor Represents 1 Point: None Total Score 1 Point Risk Factors: 0 Each Risk Factor Represents 2 Points: Age 60 - 74 Years Total Score 2 Point Risk Factors: 2 Each Risk Factor Represents 3 Points: None Total Score 3 Point Risk Factors: 0 Each Risk Factor Represents 5 Points: None Total Score 5 Point Risk Factors: 0 Venous Thromboembolism Risk Factor Score *Q: 2 Problem List Initiated/Reviewed/Updated: Yes Orders Last 24hrs: Active Orders 24 hr Category Date Time Status Patient Status Manage Transfer [TRANSFER] Routine ADT 12/10/19 16:46 Ordered Cardiac Monitoring [RC] .As Directed Care 12/10/19 15:16 Active EKG Documentation Completion [RC] ASDIRECTED Care 12/10/19 15:16 Active Peripheral IV Care [RC] . DIRECTED Care 12/10/19 15:16 Active Diltiazem [Cardizem] 100 mg Med 12/10/19 16:45 Active Sodium Chloride 0.9% [Normal Saline] 100 ml IV TITRATE Sodium Chloride 0.9% [Normal Saline] 1,000 ml Med 12/10/19 15:30 Active IV ASDIRECTED Sodium Chloride 0.9% [Saline Flush] Med 12/10/19 15:16 Active 10 ml FLUSH ASDIRECTED PRN Peripheral IV Insertion Adult [OM.PC] Stat Oth 12/10/19 15:16 Ordered Resuscitation Status Routine Resus Stat 12/10/19 16:47 Ordered EKG 12 Lead [EK] Stat Ther 12/10/19 15:16 Ordered Medication Orders Sodium Chloride (Normal Saline) 1,000 mls @ 125 mls/hr IV ASDIRECTED MARIANNA Last Admin: 12/10/19 15:19 Dose: 125 mls/hr Documented by: PRISCILLA Diltiazem HCl 100 mg/ Sodium (Chloride) 100 mls @ 5 mls/hr IV TITRATE MARIANNA; Protocol Sodium Chloride (Saline Flush) 10 ml FLUSH ASDIRECTED PRN PRN Reason: Keep Vein Open Last Admin: 12/10/19 15:21 Dose: 10 ml Documented by: PRISCILLA Assessment/Plan Comment:: ASSESSMENT AND PLAN ATRIAL FIBRILLATION WITH RAPID VENTRICULAR RESPONSE-3 previous documented episodes. Abrupt onset of this episode this morning. Failed attempted electrical cardioversion. Calculated [id number] score of 0 -Continue diltiazem continuous infusion -Incision to oral diltiazem tomorrow -No present indication for anticoagulation MAINTENANCE ISSUES -DVT prophylaxis; SCUDs -GI prophylaxis; not indicated -Schmidt catheter; not indicated -Nutrition; regular diet -Nicotine dependence; not required CODE STATUS-FULL CODE ADMISSION STATUS-patient will be admitted to inpatient status, expect at least a 2 night hospital stay for evaluation and management of problems as outlined above. At the time of this admission I do not reasonably expected evaluation and management of this problem will require more than a 96 hour hospital stay. DISPOSITION-anticipate discharge to home after the hospital stay. PRIMARY CARE PROVIDER- - Mortality Measure Prognosis:: Good
[2019-12-10] MEDS ORDERED: Ondansetron 4 MG/2 ML SDV IV PRN (17:39)
[2019-12-10] MEDS ORDERED: Polyethylene Glycol 3350 Powder 17 GM Packet PO PRN (17:39)
[2019-12-10] MEDS ORDERED: Acetaminophen 325 MG Tab PO PRN (17:39)
[2019-12-10] MEDS: Sodium Chloride 0.9% 1,000 ML IV SCH (22:21)
[2019-12-11] MEDS: Sodium Chloride 0.9% 1,000 ML IV SCH (06:08)
[2019-12-11] MEDS ORDERED: Diltiazem 120 MG Cap.CD PO SCH (09:00)
[2019-12-11] MEDS ORDERED: Aspirin 325 MG Tab.EC PO SCH (09:00)
[2019-12-11] MEDS ORDERED: Aspirin 81 MG Tab.Chew PO SCH (09:00)
[2019-12-11 12:12] VITALS: BP 115/71; PULSE 85
--- NOTE | 2019-12-11 12:58 | PCM.DCSUM1 ---
Discharge Summary - Hospital Course Brief History: Mr. Gilman is a 59-year-old gentleman who was admitted through the emergency department with weakness and lightheadedness secondary to atrial fibrillation with rapid ventricular response. - Discharge Data Discharge Date: 12/11/19 Discharge Disposition: Home, Self-Care 01 Condition: Good - Referral to Home Health Primary Care Physician: PCP None - Discharge Diagnosis/Problem(s) (1) Atrial fibrillation with rapid ventricular response SNOMED Code(s): 806866216325797 ICD Code: I48.91 - UNSPECIFIED ATRIAL FIBRILLATION Status: Acute Current Visit: Yes (2) Elevated serum creatinine SNOMED Code(s): 573288034 ICD Code: R79.89 - OTHER SPECIFIED ABNORMAL FINDINGS OF BLOOD CHEMISTRY Status: Acute Current Visit: No (3) JOSE DANIEL (obstructive sleep apnea) SNOMED Code(s): 44058732 ICD Code: G47.33 - OBSTRUCTIVE SLEEP APNEA (ADULT) (PEDIATRIC) Status: Chronic Current Visit: No - Patient Summary/Data Hospital Course: Mr. Gilman is a 59-year-old gentleman who was admitted through the emergency department with weakness and lightheadedness secondary to atrial fibrillation with rapid ventricular response. He has a known history of paroxysmal atrial fibrillation with 3 previous episodes, 2 of which have occurred in the past year. He has been followed by Dr. Donald, EP cardiology from [facility] in [facility]. He was feeling well until approximately 10 AM this morning when he noted onset of rapid heart rate associated with symptoms of lightheadedness when he would stand up or try any type of activity. He presented to the emergency department this afternoon, labs were unremarkable except for a creatinine of 1.6. Telemetry monitoring and EKG showed atrial fibrillation with rapid ventricular response. Electrical cardioversion was attempted in the emergency department, 2 attempts, the first at 200 J and the second at 300 J were both unsuccessful in converting him to sinus rhythm. He has received a bolus dose of IV diltiazem 25 mg and his rate has improved and now is below 100. Calculated [id number] score is 0. While in the emergency department he was also started on a continuous IV infusion of diltiazem. This was continued after admission and he was also given IV fluids through the night. His heart rate remained well controlled throughout the night with use of IV diltiazem. By the following morning his creatinine had returned to normal range after IV fluids through the night. Continuous infusion of diltiazem was discontinued and he was started on a dose of oral long-acting diltiazem 120 mg daily. He was monitored into the afternoon and his heart rate remained well controlled with the atrial fibrillation. He will not be discharged home with anticoagulation because of his chads score of 0. Activity will be as tolerated and he will resume his usual diet. Follow-up appointment will be scheduled with Dr. Langston as soon as possible. Follow-up appointment will also be scheduled with his primary care provider within 1 week. - Patient Instructions Diet: Usual Diet as Tolerated Activity: As Tolerated Other/Special Instructions: Please schedule follow-up appointment with Dr. Langston EP cardiology as soon as possible. Please schedule follow-up appointment with primary care provider within 1 week. - Discharge Plan *PRESCRIPTION DRUG MONITORING PROGRAM REVIEWED*: Not Applicable *COPY OF PRESCRIPTION DRUG MONITORING REPORT IN PATIENT LEIGH ANN: Not Applicable Prescriptions/Med Rec: dilTIAZem HCL [Diltiazem 24Hr ER] 120 mg PO DAILY #30 cap.sa.24h Home Medications: Home Meds Aspirin 325 mg PO DAILY 12/21/16 [History] EPINEPHrine [Epinephrine] 1 dose INJECT ASDIRECTED 12/21/16 [History] Ascorbate Calcium/Bioflavonoid [Aspen-C 500 MG] 1 each PO DAILY 08/21/17 [Hist ory] Galt-3/DHA/Epa/Fish Oil [Fish Oil 1,000 mg Softgel] 2,000 mg PO DAILY 08/21/17 [History] dilTIAZem HCL [Diltiazem 24Hr ER] 120 mg PO DAILY #30 cap.sa.24h 12/11/19 [Rx] Referrals: Claudia Bojorquez DO [Physician] - - Discharge Summary/Plan Comment DC Time >30 min.: No - Patient Data Vitals - Most Recent: Last Vital Signs Temp 97 F 12/11/19 07:00 Pulse 85 12/11/19 12:00 Resp 19 12/11/19 12:00 BP 115/71 12/11/19 12:00 Pulse Ox 96 12/11/19 07:00 Weight - Most Recent: 239 lb 4.8 oz I&O - Last 24 hours: Intake & Output 12/10/19 12/11/19 12/11/19 22:59 06:59 14:59 Intake Total 5800 6223 Balance 6665 0682 Lab Results - Last 24 hrs: Laboratory Results - last 24 hr 12/10/19 12/10/19 12/11/19 Range/Units 15:10 15:10 04:30 WBC 11.4 H (4.5-11.0) K/uL RBC 5.44 (4.30-5.90) M/uL Hgb 16.8 H (12.0-15.0) g/dL Hct 50.1 (40.0-54.0) % MCV 92 (80-98) fL MCH 31 (27-31) pg MCHC 34 (32-36) % Plt Count 198 (150-400) K/uL Neut % (Auto) 80 H (36-66) % Lymph % (Auto) 11 L (24-44) % Motley % (Auto) 8 H (2-6) % Eos % (Auto) 1 L (2-4) % Baso % (Auto) 0 (0-1) % Sodium 140 140 (140-148) mmol/L Potassium 4.5 4.2 (3.6-5.2) mmol/L Chloride 105 108 (100-108) mmol/L Carbon Dioxide 25 24 (21-32) mmol/L Anion Gap 9.6 7.6 (5.0-14.0) mmol/L BUN 20 H 18 (7-18) mg/dL Creatinine 1.6 H 1.1 (0.8-1.3) mg/dL Est Cr Clr Drug Dosing 55.49 83.03 mL/min Estimated GFR (MDRD) 44 L > 60 (>60) Glucose 105 110 H (74-106) mg/dL Calcium 9.3 8.4 L (8.5-10.1) mg/dL Magnesium 1.9 (1.8-2.4) mg/dL Total Bilirubin 1.5 H (0.2-1.0) mg/dL AST 20 (15-37) U/L ALT 27 (12-78) U/L Alkaline Phosphatase 70 (46-116) U/L Troponin I < 0.017 (0.000-0.056) ng/mL Total Protein 7.6 (6.4-8.2) g/dL Albumin 4.1 (3.4-5.0) g/dL Globulin 3.5 (2.3-3.5) g/dL Albumin/Globulin Ratio 1.2 (1.2-2.2) Med Orders - Current: Current Medications Acetaminophen (Tylenol) 650 mg PO Q4H PRN PRN Reason: Pain (Mild 1-3)/fever Aspirin (Ecotrin) 325 mg PO DAILY [facility] Last Admin: 12/11/19 09:20 Dose: 325 mg Documented by: Diltiazem HCl (Cardizem Cd) 120 mg PO DAILY [facility] Last Admin: 12/11/19 09:20 Dose: 120 mg Documented by: Sodium Chloride (Normal Saline) 1,000 mls @ 100 mls/hr IV ASDIRECTED [facility] Last Admin: 12/11/19 06:08 Dose: 100 mls/hr Documented by: Ondansetron HCl (Zofran) 4 mg IV Q4H PRN PRN Reason: Nausea/Vomiting Polyethylene Glycol (Miralax) 17 gm PO DAILY PRN PRN Reason: Constipation Sodium Chloride (Saline Flush) 10 ml FLUSH ASDIRECTED PRN PRN Reason: Keep Vein Open Discontinued Medications Diltiazem HCl (Diltiazem) 25 mg IVPUSH ONETIME ONE Stop: 12/10/19 15:18 Last Admin: 12/10/19 15:20 Dose: 25 mg Documented by: Sodium Chloride (Normal Saline) 1,000 mls @ 125 mls/hr IV ASDIRECTED [facility] Last Admin: 12/10/19 15:19 Dose: 125 mls/hr Documented by: Diltiazem HCl 100 mg/ Sodium (Chloride) 100 mls @ 5 mls/hr IV TITRATE MARIANNA; Protocol Last Admin: 12/10/19 16:55 Dose: 5 mg/hr, 5 mls/hr Documented by: Diltiazem HCl 100 mg/ Sodium (Chloride) 100 mls @ 5 mls/hr IV TITRATE MARIANNA; Protocol Propofol (Diprivan 20 Ml) Confirm Administered Dose 200 mg .ROUTE .STK-MED ONE Stop: 12/10/19 16:40 Sodium Chloride (Saline Flush) 10 ml FLUSH ASDIRECTED PRN PRN Reason: Keep Vein Open Last Admin: 12/10/19 15:21 Dose: 10 ml Documented by: - Exam General: Reports: Alert, Oriented, Cooperative, No Acute Distress Lungs: Reports: Clear to Auscultation, Normal Respiratory Effort Cardiovascular: Reports: Regular Rate, No Murmurs, Irregular Rhythm GI/Abdominal Exam: Soft, Non-Tender, No Organomegaly, No Distention Extremities: Non-Tender, No Pedal Edema
== END 2019-12-11 13:43 | disposition home or self-care (01) | DRG 310 ==
LOC: JP.ED 14:57 → JP.ICU 16:46
PROVIDERS: ADMIT Hospitalist; ATTEND Hospitalist
DX: I48.19 Other persistent atrial fibrillation (principal); N18.3 Chronic kidney disease, stage 3 (moderate); G47.33 Obstructive sleep apnea (adult) (pediatric); M19.90 Unspecified osteoarthritis, unspecified site; Z91.030 Bee allergy status; Z79.82 Long term (current) use of aspirin; Z79.899 Other long term (current) drug therapy
CPT/HCPCS: 36415; 80048; 80053; 83735; 84484; 85025; 93005; 93010; 96361; 96374; 96375; 99285-25; A9270-GY; J2704; J3490; J7030; J7050

== ENCOUNTER 2020-04-15 11:32 | Emergency (ER) | payer MEDICAID ==
[2020-04-15] MEDS ORDERED: Propofol 200 MG/20 ML SDV IVPUSH ONE (11:39)
[2020-04-15 11:40] VITALS: BP 128/85; PULSE 105
--- NOTE | 2020-04-15 12:39 | EDM.PDOC ---
ED HPI GENERAL MEDICAL PROBLEM - General Chief Complaint: Cardiovascular Problem Stated Complaint: AFIB Time Seen by Provider: 04/15/20 11:50 Source of Information: Reports: Patient, Family History Limitations: Reports: No Limitations - History of Present Illness INITIAL COMMENTS - FREE TEXT/NARRATIVE: 59-year-old male with a history of intermittent atrial fibrillation developed atrial fib about 12 hours ago while at home. This is his first episode since receiving an ablation 5 months ago. No chest pain or shortness of breath. He is on no medications. No recent alcohol use. Onset: Sudden Duration: Hour(s): (12 hours ago) Associated Symptoms: Reports: No Other Symptoms - Related Data Allergies Allergy/AdvReac Type Severity Reaction Status Date / Time bee venom protein (honey bee) Allergy Swelling Verified 04/15/20 11:39 Home Meds: Home Meds EPINEPHrine [Epinephrine] 1 dose INJECT ASDIRECTED 12/21/16 [History] Past Medical History HEENT History: Reports: Impaired Vision Cardiovascular History: Reports: Afib Gastrointestinal History: Reports: Colon Polyp Musculoskeletal History: Reports: Arthritis - Infectious Disease History Infectious Disease History: Reports: Chicken Pox - Past Surgical History HEENT Surgical History: Reports: Tonsillectomy Cardiovascular Surgical History: Reports: Cardiac Ablation, Other (See Below) Other Cardiovascular Surgeries/Procedures: cardioversion GI Surgical History: Reports: Colonoscopy Musculoskeletal Surgical History: Reports: Arthroscopic Knee Social & Family History - Family History Family Medical History: No Pertinent Family History - Tobacco Use Tobacco Use Status *Q: Never Tobacco User - Caffeine Use Caffeine Use: Reports: None - Recreational Drug Use Recreational Drug Use: No ED ROS GENERAL - Review of Systems Review Of Systems: See Below Constitutional: Denies: Fever, Chills HEENT: Reports: No Symptoms Respiratory: Denies: Shortness of Breath Cardiovascular: Reports: Palpitations. Denies: Chest Pain GI/Abdominal: Denies: Abdominal Pain, Nausea, Vomiting Skin: Reports: No Symptoms Neurological: Reports: No Symptoms Psychiatric: Reports: No Symptoms ED EXAM, GENERAL - Physical Exam Exam: See Below Exam Limited By: No Limitations General Appearance: Alert, No Apparent Distress Head: Atraumatic Neck: Supple, Non-Tender Respiratory/Chest: Lungs Clear Cardiovascular: Tachycardia, Irregularly Irregular Extremities: Normal Inspection. No: No Pedal Edema Neurological: Alert, Oriented Psychiatric: Normal Affect, Normal Mood Skin Exam: Warm, Dry Course - Vital Signs Last Recorded V/S: Last Vital Signs Temp 96.8 F L 04/15/20 11:37 Pulse 105 H 04/15/20 11:37 Resp 14 04/15/20 11:37 BP 128/85 04/15/20 11:37 Pulse Ox 100 04/15/20 11:37 - Orders/Labs/Meds Orders: Active Orders 24 hr Category Date Time Status EKG 12 Lead [EK] Routine Ther 04/15/20 12:50 Ordered Meds: Medications Discontinued Medications Generic Name Dose Route Start Last Admin Trade Name Dash PRN Reason Stop Dose Admin Propofol 200 mg 04/15/20 11:39 04/15/20 12:55 Diprivan 20 Ml IVPUSH 04/15/20 11:40 200 mg ONETIME ONE Administration - Re-Assessments/Exams Free Text/Narrative Re-Assessment/Exam: 04/15/20 12:38 EKG showed atrial fibrillation with mild rapid ventricular response, an IV was started and the patient was repaired for cardioversion. Benefits and risks were discussed with the patient and he wished to proceed. Consent was obtained and Dr. Hicks of the hospitalist service was consulted to assist. After 150 mg of IV propofol, the patient achieved adequate sedation for 1 200 J synchronized cardioversion which converted him to sinus rhythm. He was followed and monitored for an additional hour and recovered extremely well. He was discharged in sinus rhythm. 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 Sepsis Event Note (ED) - Evaluation Sepsis Screening Result: No Definite Risk - Focused Exam Vital Signs: Vital Signs Temp Pulse Resp BP Pulse Ox 04/15/20 11:37 96.8 F L 105 H 14 128/85 100 - My Orders Last 24 Hours: My Active Orders 04/15/20 12:50 EKG 12 Lead [EK] Routine - Assessment/Plan Last 24 Hours: My Active Orders 04/15/20 12:50 EKG 12 Lead [EK] Routine
== END 2020-04-15 13:02 | disposition home or self-care (01) ==
LOC: JP.ED 11:32
DX: I48.91 Unspecified atrial fibrillation (principal); Z91.030 Bee allergy status
CPT/HCPCS: 92960; 93005; 99151; 99284; J2704; 93010; 99285

== ENCOUNTER 2020-06-17 09:05 | Emergency (ER) | payer MEDICAID ==
[2020-06-17 09:14] VITALS: BP 102/70; PULSE 108
[2020-06-17] MEDS ORDERED: Propofol 200 MG/20 ML SDV IVPUSH ONE (09:17)
--- NOTE | 2020-06-17 09:19 | EDM.PDOC ---
ED HPI GENERAL MEDICAL PROBLEM - General Chief Complaint: Cardiovascular Problem Stated Complaint: AFIB Time Seen by Provider: 06/17/20 09:05 Source of Information: Reports: Patient, Family History Limitations: Reports: No Limitations - History of Present Illness INITIAL COMMENTS - FREE TEXT/NARRATIVE: 59-year-old man with intermittent atrial fibrillation over several years, re ceived an ablation last fall but has still had a couple bouts of atrial fibrillation. He responded well to electrical cardioversion in April. Last night after supper he redeveloped irregular heartbeats and palpitations and thought if he slept overnight it may resolve but it has not. He came in fasting this morning anticipating cardioversion. No chest pain or shortness of breath. Onset: Sudden Duration: Hour(s): (12 hours ago) - Related Data Allergies Allergy/AdvReac Type Severity Reaction Status Date / Time bee venom protein (honey bee) Allergy Swelling Verified 06/17/20 09:14 Home Meds: Home Meds EPINEPHrine [Epinephrine] 1 dose INJECT ASDIRECTED 12/21/16 [History] Past Medical History HEENT History: Reports: Impaired Vision Cardiovascular History: Reports: Afib Gastrointestinal History: Reports: Colon Polyp Musculoskeletal History: Reports: Arthritis - Infectious Disease History Infectious Disease History: Reports: Chicken Pox - Past Surgical History HEENT Surgical History: Reports: Tonsillectomy Cardiovascular Surgical History: Reports: Cardiac Ablation, Other (See Below) Other Cardiovascular Surgeries/Procedures: cardioversion GI Surgical History: Reports: Colonoscopy Musculoskeletal Surgical History: Reports: Arthroscopic Knee Social & Family History - Family History Family Medical History: No Pertinent Family History - Caffeine Use Caffeine Use: Reports: None ED ROS GENERAL - Review of Systems Review Of Systems: See Below Constitutional: Denies: Fever, Chills HEENT: Reports: No Symptoms Respiratory: Reports: No Symptoms. Denies: Shortness of Breath Cardiovascular: Reports: Palpitations. Denies: Chest Pain GI/Abdominal: Reports: No Symptoms Skin: Reports: No Symptoms Neurological: Reports: No Symptoms Psychiatric: Reports: No Symptoms ED EXAM, GENERAL - Physical Exam Exam: See Below Exam Limited By: No Limitations General Appearance: Alert, No Apparent Distress Head: Atraumatic Respiratory/Chest: No Respiratory Distress, Lungs Clear Cardiovascular: Irregularly Irregular Neurological: Alert, Oriented Psychiatric: Normal Affect, Normal Mood Skin Exam: Warm, Dry Course - Vital Signs Last Recorded V/S: Last Vital Signs Temp 97.3 F 06/17/20 09:11 Pulse 108 H 06/17/20 09:11 Resp 16 06/17/20 09:11 BP 102/70 06/17/20 09:11 Pulse Ox 100 06/17/20 09:11 - Orders/Labs/Meds Meds: Medications Discontinued Medications Generic Name Dose Route Start Last Admin Trade Name Dash PRN Reason Stop Dose Admin Propofol 200 mg 06/17/20 09:17 06/17/20 09:53 Propofol 200 Mg/20 Ml Sdv IVPUSH 06/17/20 09:18 200 mg ONETIME ONE Administration - Re-Assessments/Exams Free Text/Narrative Re-Assessment/Exam: 06/17/20 09:59 conveyor monitor confirmed atrial fibrillation with a rate of 110-126. Dr. Lopez was consulted for assistance, and the patient was prepared for cardioversion. Consent was obtained, patient was prepped, and elective cardioversion with 200 J of synchronized shock was given after 120 mg of IV propofol. Patient converted to sinus rhythm and recovered nicely. 06/17/20 10:16 Patient recovered for the next 30 minutes back to near baseline. Remained in sinus rhythm. 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 They will also need to have a conversation on whether second ablation would be worthwhile. Departure - Departure Time of Disposition: 10:45 Disposition: Home, Self-Care 01 Clinical Impression: Atrial fibrillation with rapid ventricular response Instructions: Atrial Fibrillation, [id number] Referrals: Claudia Bojorquez DO [Primary Care Provider] - Forms: ED Department Discharge Care Plan Goals: Restart Coumadin as discussed if agreeable with your primary laborer concrete paving. Return anytime if atrial fibrillation is recurring and you need help. Sepsis Event Note (ED) - Evaluation Sepsis Screening Result: No Definite Risk - Focused Exam Vital Signs: Vital Signs Temp Pulse Resp BP Pulse Ox 06/17/20 09:11 97.3 F 108 H 16 102/70 100
--- NOTE | 2020-06-17 11:23 | PCM.PRNOTE ---
- Free Text/Narrative Note: Date of service: 06/17/20 Proposed procedure: Synchronized cardioversion Preprocedure diagnosis: Paroxysmal atrial fibrillation with rapid ventricular response Post procedure diagnosis: Paroxysmal atrial fibrillation with rapid ventricular response Indication for procedure: Charlie was evaluated today for management atrial fibrillation with symptoms and rapid ventricular response. Synchronized cardioversion was recommended as a primary treatment. Description of the procedure: Charlie is currently located in [place] [id number]. We have reviewed the potential risks of electrical cardioversion including but not limited to: Superficial skin randall, ineffective treatment, other arrhythmias, reaction to anesthesia medications or potentially asystole. The benefits of the procedure have also been reviewed. At this time the patient wishes to proceed with electrical cardioversion. All necessary pre-procedure information and paperwork has been provided and completed, respectively. The patient was connected to cardioversion pads and monitoring equipment per protocol. Prior to the procedure, a timeout was held with nursing and anesthesia present to confirm the right patient and right procedure. Once appropriate anesthesia was applied the machine was charged to 200 Joules and a synchronized electrical shock was applied. The patient was successfully converted to normal sinus rhythm based on telemetry monitoring. They will remain in their current location until anesthesia has dissipated and the patient is more awake and alert. They will then be discharged to home once medically stable. Anticoagulation should be continued for at least one month post cardioversion. There were no immediate complications noted from the procedure. Post procedure EKG is pending at the time of dictation. Stan Lopez M.D.
== END 2020-06-17 10:48 | disposition home or self-care (01) ==
LOC: JP.ED 09:05
DX: I48.91 Unspecified atrial fibrillation (principal); Z91.030 Bee allergy status
CPT/HCPCS: 92960; 99284; 99284-25; J2704

== ENCOUNTER 2020-11-29 05:31 | Day surgery (SDC) | payer MEDICAID ==
[2020-11-29] MEDS ORDERED: Lactated Ringers 1,000 ML IV SCH (06:00)
[2020-11-29] MEDS: Nozin Nasal Sanitizer NASBOTH SCH ×2 (06:33→20:01)
[2020-11-29] MEDS ORDERED: Povidone-Iodine 10% Soln 118.25 ML Bottle ONE (07:02)
[2020-11-29] MEDS ORDERED: Propofol 200 MG/20 ML SDV ONE ×2 (07:19→08:03)
[2020-11-29] MEDS ORDERED: Midazolam 1 MG/ML 2 ML SDV ONE ×2 (07:20→08:04)
[2020-11-29] MEDS ORDERED: fentaNYL 100 MCG/2 ML SDV ONE ×2 (07:20→08:04)
[2020-11-29] MEDS ORDERED: Lactated Ringers 1,000 ML ONE (08:07)
[2020-11-29] MEDS ORDERED: Acetaminophen 325 MG Tab PO PRN (09:30)
[2020-11-29] MEDS ORDERED: Sodium Chloride 0.9% 1,000 ML IV SCH (09:30)
[2020-11-29] MEDS ORDERED: Morphine 2 MG/ML SYRINGE IVPUSH PRN (09:30)
[2020-11-29] MEDS ORDERED: ceFAZolin 1 GM in Sodium Chloride 0.9% 50 ML IV SCH (09:30)
[2020-11-29] MEDS ORDERED: Magnesium Hydroxide 400 MG/5 ML Susp 30 ML Cup PO PRN (09:30)
--- NOTE | 2020-11-29 11:05 | CR ---
Knee 1V or 2V Lt CLINICAL HISTORY: Postop arthroplasty FINDINGS: Patient has a medial hemiarthroplasty in place. Components appear well seated. There is intra-articular and subcutaneous air. There are osteoarthritic changes patellofemoral joint. Impression: Postoperative left knee hemiarthroplasty
[2020-11-29] MEDS: Ketorolac 30 MG/ML SDV IVPUSH SCH ×3 (11:36→22:18)
[2020-11-29] MEDS: Acetaminophen/HYDROcodone 325-5 MG Tab PO PRN (12:11)
[2020-11-29] MEDS: Acetaminophen/oxyCODONE 325-5 MG Tab PO PRN ×2 (15:24→20:00)
[2020-11-29] MEDS: ceFAZolin 1 GM in Premix Bag 1 BAG IV SCH ×2 (15:25→23:14)
[2020-11-29] MEDS: Docusate Sodium 100 MG Cap PO SCH (20:00)
[2020-11-29] MEDS: Aspirin 325 MG Tab.EC PO SCH (20:00)
[2020-11-29] MEDS ORDERED: Nozin Nasal Sanitizer NASBOTH SCH (21:00)
[2020-11-30] MEDS: Acetaminophen/oxyCODONE 325-5 MG Tab PO PRN ×2 (01:30→05:39)
[2020-11-30] MEDS: Ketorolac 30 MG/ML SDV IVPUSH SCH ×2 (03:56→11:20)
[2020-11-30] MEDS: ceFAZolin 1 GM in Premix Bag 1 BAG IV SCH (07:47)
[2020-11-30] MEDS ORDERED: Ondansetron 4 MG/2 ML SDV IVPUSH PRN (09:24)
[2020-11-30] MEDS: Aspirin 325 MG Tab.EC PO SCH (09:46)
[2020-11-30] MEDS: Nozin Nasal Sanitizer NASBOTH SCH (09:46)
[2020-11-30] MEDS: Docusate Sodium 100 MG Cap PO SCH (09:46)
[2020-11-30] MEDS: Acetaminophen/HYDROcodone 325-5 MG Tab PO PRN ×2 (09:50→14:45)
[2020-11-30 11:09] VITALS: BP 114/69; PULSE 55
--- NOTE | 2020-12-06 15:25 | OR ---
DATE OF PROCEDURE: 11/29/2020 SURGEON: Reg Parkinson MD PREOPERATIVE DIAGNOSIS: Osteoarthritis, left knee, medial compartment. POSTOPERATIVE DIAGNOSIS: Osteoarthritis, left knee, medial compartment, with full-thickness articular cartilage defect of medial femoral condyle. ANESTHESIA: Spinal with sedation. INDICATIONS: Charlie is a 60-year-old gentleman with a history of progressive pain in the left knee. X-rays reveal moderate medial joint space collapse; however, MRI shows loss of articular cartilage with subchondral cyst changes and edema consistent with osteoarthritis of medial compartment. Patellofemoral and lateral compartment are well preserved. He has failed other conservative treatment. He now presents for left medial unicompartmental arthroplasty. DESCRIPTION OF PROCEDURE: After adequate anesthesia was obtained, the patient was placed supine with a tourniquet about the left upper thigh. The left leg was prepped and draped in a sterile fashion. The leg was exsanguinated and tourniquet inflated to 300 mmHg pressure. A longitudinal incision was made slightly medial of midline and carried down through the subcutaneous tissues from the tibial tubercle to the superior pole of the patella. Medial parapatellar arthrotomy was performed up to the insertion of the VMO. Mild effusion was present. The anterior horn of the medial meniscus was excised. The knee was flexed, and articular cartilage defect noted on the femoral condyle as well as near complete loss of the tibial plateau. The anterior lip of the tibial plateau was resected with an oscillating saw. The knee was extended, and extramedullary alignment jig was placed. This was secured to the tibia and femur. A distal femoral cut was made. This portion of the guide was removed. The knee was flexed, and the proximal tibia was then resected with a combination of oscillating and reciprocating saws. The medial meniscus was excised. The femur was sized to an E component. Cutting jig was secured. Remaining cuts are made, and peg holes were drilled. The jig was removed. The tibia was sized to a #4 component. Trial tibial plate was placed and pinned in position. Peg holes were drilled. Trial reduction was done with an 8 mm insert which provided 2 to 3 mm of laxity. Components were removed. The knee was thoroughly irrigated with pulse lavage. Bone surfaces were dried. The components were cemented in place. Excess cement was removed. The knee was held in full extension with an 8 mm insert and the 2 mm spacer as the cement cured. The knee was taken through range of motion. It showed just approximately 3 mm of laxity, and a trial was then done with a 9 mm insert which provided good balance with 2 mm. The trial was removed. The knee was irrigated. The final polyethylene was placed. The knee was irrigated with dilute Betadine solution followed by pulse lavage. The capsule was repaired using #2 Ethibond in a running fashion. The skin was closed with 2-0 Vicryl and a running 3-0 Monocryl. Steri-Strips were applied. A light compressive dressing was placed. The patient tolerated the procedure well. There were no complications. He was taken from the operating room in stable condition. Reg Parkinson MD /[id number] MTDD
== END 2020-11-30 15:00 | disposition home or self-care (01) ==
LOC: JP.SDS 05:31 → JP.MS 09:30 → JP.SDS 11-30 15:00
PROVIDERS: ATTEND Specialist
DX: M17.12 Unilateral primary osteoarthritis, left knee (principal); M24.19 Other articular cartilage disorders, other specified site; M23.92 Unspecified internal derangement of left knee; G89.29 Other chronic pain; I48.0 Paroxysmal atrial fibrillation; G47.33 Obstructive sleep apnea (adult) (pediatric); E78.00 Pure hypercholesterolemia, unspecified; E78.5 Hyperlipidemia, unspecified; Z91.030 Bee allergy status
CPT/HCPCS: 27446; 73560; 97110; 97161; 97165; 97530; A9270; C1713; C1776; J0690; J1885; J2250; J2270; J2405; J2704; J3010; J7030; J7120

== ENCOUNTER 2022-11-16 10:53 | Emergency (ER) | payer MEDICAID ==
[2022-11-16] MEDS ORDERED: Sodium Chloride 0.9% 10 ML Syringe FLUSH PRN (11:06)
[2022-11-16 11:22] LABS: BASOPHILS PERCENT AUTO 0.2 % (0.1-1.3); EOSINOPHILS ABSOLUTE AUTO 0.05 K/uL (0.00-0.40); HEMATOCRIT 46.2 % (38.4-49.7); HEMOGLOBIN 16.3 g/dL (12.9-16.9); IMMATURE GRAN PERCENT AUTO 0.4 % (0.0-0.7); LYMPHOCYTES ABSOLUTE AUTO 1.04 K/uL (0.8-3.3); MEAN CORPUSCULAR HEMOGLOBIN 32.3 pg (31.6-35.5); MEAN CORPUSCULAR HGB CONC 35.3 g/dL (31.6-35.5); MEAN CORPUSCULAR VOLUME 91.5 fL (81.4-99.0); MONOCYTES ABSOLUTE AUTO 0.52 K/uL (0.20-0.90); NEUTROPHILS ABSOLUTE AUTO 3.56 K/uL (1.0-7.6); NEUTROPHILS PERCENT AUTO 68.4 % (40.0-78.1); PLATELET COUNT,PLT 154 K/uL (130-375); RED BLOOD CELL COUNT 5.05 M/uL (4.14-5.76); WHITE BLOOD CELL COUNT,WBC 5.2 K/uL (3.2-11.0)
[2022-11-16 11:24] LABS: BASOPHILS ABSOLUTE AUTO 0.01 K/uL (0.00-0.10); IMMATURE GRAN ABSOLUTE AUTO 0.02 K/uL (0.00-0.23)
[2022-11-16 11:42] LABS: PROTHROMBIN TIME 10.4 sec (9.2-10.6); PTT,PARTIAL THROMBOPLSTIN TIME 25.8 sec (21.8-27.3)
[2022-11-16 11:51] LABS: ANION GAP 9.4 mmol/L (5.0-14.0); CALCIUM 9.1 mg/dL (8.5-10.1); EST CRCL DRUG DOSING (CG) 85.45 mL/min; MAGNESIUM 1.8 mg/dL (1.8-2.4); POTASSIUM,K 4.1 mmol/L (3.6-5.2); TSH ULTRASENSITIVE 0.907 uIU/mL (0.358-3.740)
[2022-11-16] MEDS ORDERED: Propofol 200 MG/20 ML SDV ONE (12:37)
[2022-11-16 13:27] VITALS: BP 101/68; PULSE 48
== END 2022-11-16 14:04 | disposition home or self-care (01) ==
LOC: JP.ED 10:53
DX: I48.91 Unspecified atrial fibrillation (principal); G47.33 Obstructive sleep apnea (adult) (pediatric); Z88.8 Allergy status to other drugs, medicaments and biological substances; Z91.030 Bee allergy status; Z88.5 Allergy status to narcotic agent
CPT/HCPCS: 36415; 80048; 83735; 84443; 85025; 85610; 85730; 92960; 93005; 99285; J2704; J3490

== ENCOUNTER 2023-06-25 06:02 | Observation (INO) | payer MEDICAID ==
[2023-06-25 06:20] LABS: HEMATOCRIT 45.4 % (38.4-49.7); HEMOGLOBIN 15.7 g/dL (12.9-16.9); MEAN CORPUSCULAR HEMOGLOBIN 31.8 pg (31.6-35.5); MEAN CORPUSCULAR HGB CONC 34.6 g/dL (31.6-35.5); MEAN CORPUSCULAR VOLUME 92.1 fL (81.4-99.0); RED BLOOD CELL COUNT 4.93 M/uL (4.14-5.76); WHITE BLOOD CELL COUNT,WBC 4.7 K/uL (3.2-11.0)
[2023-06-25] MEDS: Acetaminophen 500 MG Tab PO ONE (06:21)
[2023-06-25 06:41] LABS: A/G RATIO 1.1 (1.2-2.2); ALANINE AMINOTRANSFERASE,ALT 28 U/L (12-78); ALBUMIN 4.1 g/dL (3.4-5.0); ALKALINE PHOSPHATASE 78 U/L (46-116); ANION GAP 10.1 mmol/L (5.0-14.0); ASPARTATE AMNIOTRANSFERASE,AST 17 U/L (15-37); BILIRUBIN TOTAL 1.2 mg/dL (0.2-1.0); BLOOD UREA NITROGEN,BUN 19 mg/dL (7-18); CALCIUM 9.2 mg/dL (8.5-10.1); CARBON DIOXIDE,CO2 28 mmol/L (21-32); CHLORIDE,CL 103 mmol/L (100-108); CREATININE 1.3 mg/dL (0.8-1.3); EST CRCL DRUG DOSING (CG) 67.62 mL/min; ESTIMATED GFR 62 mL/min (>60); GLUCOSE RANDOM 128 mg/dL (74-106); POTASSIUM,K 4.2 mmol/L (3.6-5.2); PROTEIN TOTAL,TP 7.9 g/dL (6.4-8.2); SODIUM,NA 141 mmol/L (140-148)
[2023-06-25] MEDS: Lactated Ringers 1,000 ML IV SCH (07:14)
[2023-06-25] MEDS ORDERED: fentaNYL 250 MCG/5 ML SDV ONE ×2 (07:16→07:56)
[2023-06-25] MEDS ORDERED: Rocuronium 50 MG/5 ML Vial ONE (07:17)
[2023-06-25] MEDS ORDERED: Succinylcholine 200 MG/10 ML MDV ONE (07:17)
[2023-06-25] MEDS ORDERED: Neostigmine Methylsulfate 10 MG/10 ML MDV ONE (07:17)
[2023-06-25] MEDS ORDERED: Dexamethasone 4 MG/ML SDV ONE (07:17)
[2023-06-25] MEDS ORDERED: Glycopyrrolate 0.2 MG/ML 5 ML MDV ONE (07:17)
[2023-06-25] MEDS ORDERED: Propofol 200 MG/20 ML SDV ONE (07:17)
[2023-06-25] MEDS ORDERED: Ondansetron 4 MG/2 ML SDV ONE (07:17)
[2023-06-25] MEDS: ceFAZolin 2 GM in Premix Bag 1 BAG IV ONE (07:45)
[2023-06-25] MEDS: Bupivacaine 0.5%/EPINEPHrine 1:200,000 50 ML MDV ONE (08:24)
[2023-06-25] MEDS ORDERED: Sennosides/Docusate Sodium 50-8.6 MG Tab PO PRN (09:22)
[2023-06-25] MEDS ORDERED: Ondansetron 4 MG/2 ML SDV IVPUSH PRN (09:22)
[2023-06-25] MEDS: Acetaminophen 500 MG Tab PO SCH (11:24)
[2023-06-26 04:43] LABS: HEMATOCRIT 41.2 % (38.4-49.7); HEMOGLOBIN 14.2 g/dL (12.9-16.9); MEAN CORPUSCULAR HEMOGLOBIN 31.8 pg (31.6-35.5); MEAN CORPUSCULAR HGB CONC 34.5 g/dL (31.6-35.5); MEAN CORPUSCULAR VOLUME 92.4 fL (81.4-99.0); RED BLOOD CELL COUNT 4.46 M/uL (4.14-5.76); WHITE BLOOD CELL COUNT,WBC 9.2 K/uL (3.2-11.0)
[2023-06-26 05:02] LABS: CALCIUM 9.6 mg/dL (8.5-10.1); CREATININE 1.2 mg/dL (0.8-1.3); EST CRCL DRUG DOSING (CG) 73.26 mL/min; POTASSIUM,K 4.5 mmol/L (3.6-5.2)
[2023-06-26 05:07] LABS: PHOSPHORUS 4.1 mg/dL (2.5-4.9)
[2023-06-26 05:15] LABS: ANION GAP 12.5 mmol/L (5.0-14.0)
[2023-06-26 05:47] VITALS: BP 112/70; PULSE 65
== END 2023-06-26 12:14 | disposition home or self-care (01) ==
LOC: JP.SDS 06:02 → JP.MS 09:22
PROVIDERS: ADMIT Student in an Organized Health Care Education/Training Program; ATTEND Student in an Organized Health Care Education/Training Program
DX: K40.90 Unilateral inguinal hernia, without obstruction or gangrene, not specified as recurrent (principal); E78.5 Hyperlipidemia, unspecified; I48.0 Paroxysmal atrial fibrillation; G47.33 Obstructive sleep apnea (adult) (pediatric); Z91.030 Bee allergy status; Z79.899 Other long term (current) drug therapy
CPT/HCPCS: 36415; 49650; 80048; 80053; 83735; 84100; 85027; A9270; C1781; J0330; J0690; J1100; J2405; J2704; J2710; J3010; J3490; J7120

== ENCOUNTER 2023-11-05 08:40 | Emergency (ER) | payer MEDICAID, OTHER ==
[2023-11-05 09:05] VITALS: BP 111/81; PULSE 67
== END 2023-11-05 10:07 | disposition home or self-care (01) ==
LOC: JP.ED 08:40
DX: I48.19 Other persistent atrial fibrillation (principal); E66.9 Obesity, unspecified; Z79.899 Other long term (current) drug therapy; Z91.030 Bee allergy status; Z88.5 Allergy status to narcotic agent
CPT/HCPCS: 99284

== ENCOUNTER 2024-03-12 07:36 | Day surgery (SDC) | payer OTHER ==
[~2024-03-12 07:36] MED LIST: Bupivacaine 0.5% 30 ML SDV ONE
[2024-03-12] MEDS ORDERED: fentaNYL 50 MCG/ML SDV ONE (07:57)
[2024-03-12] MEDS ORDERED: Midazolam 1 MG/ML 2 ML SDV ONE (07:57)
[2024-03-12] MEDS ORDERED: Propofol 200 MG/20 ML SDV ONE (07:57)
[2024-03-12] MEDS: Lactated Ringers 1,000 ML IV SCH (08:35)
[2024-03-12] MEDS: ceFAZolin 2 GM in Premix Bag 1 BAG IV ONE (09:05)
[2024-03-12] MEDS: Bupivacaine 0.5%/EPINEPHrine 1:200,000 50 ML MDV ONE (09:25)
[2024-03-12 10:56] VITALS: BP 141/78; PULSE 60
== END 2024-03-12 11:10 | disposition home or self-care (01) ==
LOC: JP.SDS 07:36
PROVIDERS: ATTEND Surgery
DX: N62 Hypertrophy of breast (principal); I48.19 Other persistent atrial fibrillation; Z79.899 Other long term (current) drug therapy; Z88.5 Allergy status to narcotic agent; Z91.030 Bee allergy status
CPT/HCPCS: 00400; 19120; 88305; 88341; 88342; 88360; J0690; J2250; J2704; J3010; J3490; J7120; J0665